=== PATIENT | female | born 1960 | race Two or more races ===

== ENCOUNTER 2017-04-13 09:25 | Emergency (ER) | payer OTHER ==
[~2017-04-13] VITALS: Ht 152.4 cm; Wt 54.4 kg
[~2017-04-13 09:25] MED LIST: CATAFLAM50 MG PO; HYDROCHLOROTHIA25 MG; ORPH100T PO; TENORMIN50 M1
[2017-04-13] MEDS ORDERED: METOPROLOL SUCC50 MG (09:36)
[2017-04-13] MEDS ORDERED: EC-NAPROSYN500 MG PO (12:58)
== END 2017-04-13 13:06 | disposition home or self-care (01) ==
LOC: ER 09:25
DX: G44.209 Tension-type headache, unspecified, not intractable (principal)

== ENCOUNTER 2017-06-10 07:09 | Outpatient (CLI) | payer OTHER ==
[~2017-06-10 07:09] MED LIST changes: +EC-NAPROSYN500 MG PO; +METOPROLOL SUCC50 MG
== END 2017-06-10 07:32 | disposition home or self-care (01) ==
LOC: LAB 07:09
DX: I10 Essential (primary) hypertension (principal); M54.5 Low back pain; E78.9 Disorder of lipoprotein metabolism, unspecified; E55.9 Vitamin D deficiency, unspecified

== ENCOUNTER 2017-08-06 08:35 | Outpatient (CLI) | payer OTHER | END 2017-08-06 08:52 | disposition home or self-care (01) | LOC: LAB 08:35 | DX: D50.9 Iron deficiency anemia, unspecified (principal) ==

== ENCOUNTER 2017-10-07 06:57 | Outpatient (CLI) | payer OTHER | END 2017-10-07 07:01 | disposition home or self-care (01) | LOC: LAB 06:57 | DX: I10 Essential (primary) hypertension (principal); M54.5 Low back pain; E78.89 Other lipoprotein metabolism disorders; E55.9 Vitamin D deficiency, unspecified ==

== ENCOUNTER 2018-01-09 10:45 | Emergency (ER) | payer OTHER ==
[~2018-01-09] VITALS: Ht 152.4 cm; Wt 54.4 kg
[2018-01-09] MEDS ORDERED: NAPROXEN500 MG PO (14:46)
== END 2018-01-09 14:55 | disposition home or self-care (01) ==
LOC: ER 10:45
DX: S20.212A Contusion of left front wall of thorax, initial encounter (principal); W22.8XXA Striking against or struck by other objects, initial encounter; Y93.89 Activity, other specified; Y92.89 Other specified places as the place of occurrence of the external cause; Y99.8 Other external cause status

== ENCOUNTER → 2018-01-20 06:31 | Outpatient (CLI) | payer OTHER ==
[~2018-01-20 06:31] MED LIST changes: +NAPROXEN500 MG PO
== END | disposition home or self-care (01) ==
LOC: LAB 06:31
DX: I10 Essential (primary) hypertension (principal); M54.5 Low back pain; E78.89 Other lipoprotein metabolism disorders; E55.9 Vitamin D deficiency, unspecified

== ENCOUNTER 2018-02-10 13:13 | Outpatient (CLI) | payer OTHER | END 2018-02-10 13:26 | disposition home or self-care (01) | LOC: NUCLEAR 13:13 | DX: M81.0 Age-related osteoporosis without current pathological fracture (principal); M54.5 Low back pain; I10 Essential (primary) hypertension; E78.89 Other lipoprotein metabolism disorders; E55.9 Vitamin D deficiency, unspecified ==

== ENCOUNTER 2018-03-15 10:55 | Outpatient (CLI) | payer OTHER | END 2018-03-15 11:04 | disposition home or self-care (01) | LOC: MAMO-SONO 10:55 | DX: Z12.31 Encounter for screening mammogram for malignant neoplasm of breast (principal); N60.11 Diffuse cystic mastopathy of right breast; N60.12 Diffuse cystic mastopathy of left breast ==

== ENCOUNTER 2018-05-20 07:37 | Outpatient (CLI) | payer OTHER | END 2018-05-20 07:51 | disposition home or self-care (01) | LOC: LAB 07:37 | DX: I10 Essential (primary) hypertension (principal); M54.5 Low back pain; E78.9 Disorder of lipoprotein metabolism, unspecified; E55.9 Vitamin D deficiency, unspecified ==

== ENCOUNTER 2018-09-29 06:40 | Outpatient (CLI) | payer OTHER | END 2018-09-29 13:35 | disposition home or self-care (01) | LOC: LAB 06:40 | DX: E55.9 Vitamin D deficiency, unspecified (principal); E78.89 Other lipoprotein metabolism disorders; I10 Essential (primary) hypertension; M54.5 Low back pain ==

== ENCOUNTER → 2018-10-02 12:24 | Outpatient (CLI) | payer OTHER | END | disposition home or self-care (01) | LOC: LAB 12:24 | DX: E55.9 Vitamin D deficiency, unspecified (principal); E78.89 Other lipoprotein metabolism disorders; I10 Essential (primary) hypertension; M54.5 Low back pain ==

== ENCOUNTER 2018-12-25 09:42 | Outpatient (CLI) | payer OTHER | END 2018-12-25 10:01 | disposition home or self-care (01) | LOC: RAD 09:42 | DX: M25.562 Pain in left knee (principal); M25.561 Pain in right knee ==

== ENCOUNTER → 2019-01-31 | Outpatient (CLI) | payer OTHER | END | disposition home or self-care (01) | LOC: MRI 12:27 | DX: M25.561 Pain in right knee (principal) | CPT/HCPCS: 73721 ==

== ENCOUNTER 2019-02-06 07:22 | Outpatient (CLI) | payer OTHER | END 2019-02-06 07:41 | disposition home or self-care (01) | LOC: LAB 07:22 | DX: E55.9 Vitamin D deficiency, unspecified (principal); E78.49 Other hyperlipidemia; I10 Essential (primary) hypertension; M54.5 Low back pain; G62.89 Other specified polyneuropathies; F41.8 Other specified anxiety disorders; M43.16 Spondylolisthesis, lumbar region; M54.31 Sciatica, right side; M79.7 Fibromyalgia ==

== ENCOUNTER 2019-02-27 06:45 | Outpatient (CLI) | payer OTHER | END 2019-02-27 07:19 | disposition home or self-care (01) | LOC: LAB 06:45 | DX: D68.8 Other specified coagulation defects (principal); E78.2 Mixed hyperlipidemia; N39.0 Urinary tract infection, site not specified; R07.89 Other chest pain ==

== ENCOUNTER → 2019-10-22 06:32 | Outpatient (CLI) | payer OTHER | END | disposition home or self-care (01) | LOC: LAB 06:32 | PROVIDERS: ATTEND Internal Medicine | DX: E78.89 Other lipoprotein metabolism disorders (principal); E55.9 Vitamin D deficiency, unspecified; I10 Essential (primary) hypertension; M54.5 Low back pain; G62.89 Other specified polyneuropathies; F41.8 Other specified anxiety disorders; M43.16 Spondylolisthesis, lumbar region; M54.31 Sciatica, right side; M79.7 Fibromyalgia; S83.206A Unspecified tear of unspecified meniscus, current injury, right knee, initial encounter; Z12.11 Encounter for screening for malignant neoplasm of colon ==

== ENCOUNTER → 2020-01-21 06:57 | Outpatient (CLI) | payer OTHER | END | disposition home or self-care (01) | LOC: LAB 06:57 | PROVIDERS: ATTEND Internal Medicine | DX: E03.8 Other specified hypothyroidism (principal); I10 Essential (primary) hypertension; M54.5 Low back pain; Z01.810 Encounter for preprocedural cardiovascular examination; E78.89 Other lipoprotein metabolism disorders; E11.51 Type 2 diabetes mellitus with diabetic peripheral angiopathy without gangrene; Z12.11 Encounter for screening for malignant neoplasm of colon ==

== ENCOUNTER 2020-06-20 06:59 | Outpatient (CLI) | payer OTHER | END 2020-06-20 07:19 | disposition home or self-care (01) | LOC: LAB 06:59 | PROVIDERS: ATTEND Internal Medicine | DX: E03.8 Other specified hypothyroidism (principal); I10 Essential (primary) hypertension; M54.5 Low back pain; Z01.810 Encounter for preprocedural cardiovascular examination; E78.89 Other lipoprotein metabolism disorders; E11.51 Type 2 diabetes mellitus with diabetic peripheral angiopathy without gangrene ==

== ENCOUNTER 2020-07-07 11:29 | Outpatient (CLI) | payer OTHER | END 2020-07-07 11:30 | disposition home or self-care (01) | LOC: PPH VACUNA 11:29 | DX: Z23 Encounter for immunization (principal) ==

== ENCOUNTER 2020-08-06 14:17 | Outpatient (CLI) | payer OTHER | END 2020-08-06 14:26 | disposition home or self-care (01) | LOC: MAMO-SONO 14:17 | PROVIDERS: ATTEND Internal Medicine | DX: Z12.31 Encounter for screening mammogram for malignant neoplasm of breast (principal); I10 Essential (primary) hypertension; M54.5 Low back pain; Z01.810 Encounter for preprocedural cardiovascular examination; E03.8 Other specified hypothyroidism; E78.89 Other lipoprotein metabolism disorders; E11.51 Type 2 diabetes mellitus with diabetic peripheral angiopathy without gangrene; Z13.820 Encounter for screening for osteoporosis ==

== ENCOUNTER 2020-08-25 14:14 | Outpatient (CLI) | payer OTHER | END 2020-08-25 14:16 | disposition home or self-care (01) | LOC: NUCLEAR 14:14 | PROVIDERS: ATTEND Internal Medicine | DX: M54.5 Low back pain (principal); M81.0 Age-related osteoporosis without current pathological fracture ==

== ENCOUNTER 2020-09-22 09:56 | Emergency (ER) | payer OTHER ==
[~2020-09-22] VITALS: Ht 149.9 cm; Wt 54.4 kg
[2020-09-22] MEDS ORDERED: TENORMIN50 M1 (10:02)
[2020-09-22] MEDS ORDERED: LIPITOR20 MG (10:02)
== END 2020-09-22 11:38 | disposition home or self-care (01) ==
LOC: ER 09:56
DX: H00.15 Chalazion left lower eyelid (principal)

== ENCOUNTER → 2020-09-29 07:14 | Outpatient (CLI) | payer OTHER ==
[~2020-09-29 07:14] MED LIST changes: +LIPITOR20 MG
== END | disposition home or self-care (01) ==
LOC: LAB 07:14
PROVIDERS: ATTEND Internal Medicine
DX: M54.5 Low back pain (principal); I10 Essential (primary) hypertension; Z01.810 Encounter for preprocedural cardiovascular examination; E03.9 Hypothyroidism, unspecified; E78.9 Disorder of lipoprotein metabolism, unspecified; E11.51 Type 2 diabetes mellitus with diabetic peripheral angiopathy without gangrene; Z12.31 Encounter for screening mammogram for malignant neoplasm of breast; Z12.11 Encounter for screening for malignant neoplasm of colon

== ENCOUNTER → 2021-01-26 07:03 | Outpatient (CLI) | payer OTHER | END | disposition home or self-care (01) | LOC: LAB 07:03 | PROVIDERS: ATTEND Emergency Medicine Pediatric Emergency Medicine | DX: I10 Essential (primary) hypertension (principal); Z01.810 Encounter for preprocedural cardiovascular examination; E03.8 Other specified hypothyroidism; E78.89 Other lipoprotein metabolism disorders; E11.51 Type 2 diabetes mellitus with diabetic peripheral angiopathy without gangrene; Z12.31 Encounter for screening mammogram for malignant neoplasm of breast; Z13.820 Encounter for screening for osteoporosis ==

== ENCOUNTER 2021-01-29 15:15 | Outpatient (CLI) | payer OTHER | END 2021-01-29 15:20 | disposition home or self-care (01) | LOC: PPH VACUNA 15:15 | PROVIDERS: ATTEND Emergency Medicine Pediatric Emergency Medicine | DX: Z23 Encounter for immunization (principal) ==

== ENCOUNTER → 2021-05-11 07:13 | Outpatient (CLI) | payer OTHER | END | disposition home or self-care (01) | LOC: LAB 07:13 | PROVIDERS: ATTEND Internal Medicine | DX: I10 Essential (primary) hypertension (principal); E03.9 Hypothyroidism, unspecified; E78.9 Disorder of lipoprotein metabolism, unspecified ==

== ENCOUNTER 2021-11-10 13:51 | Outpatient (CLI) | payer OTHER | END 2021-11-10 14:01 | disposition home or self-care (01) | LOC: PPH VACUNA 13:51 | PROVIDERS: ATTEND Emergency Medicine Pediatric Emergency Medicine | DX: Z23 Encounter for immunization (principal) ==

== ENCOUNTER 2022-03-05 07:08 | Outpatient (CLI) | payer OTHER | END 2022-03-05 07:10 | disposition home or self-care (01) | LOC: LAB 07:08 | PROVIDERS: ATTEND Internal Medicine | DX: I10 Essential (primary) hypertension (principal); M54.50 Low back pain, unspecified; E03.9 Hypothyroidism, unspecified; E78.9 Disorder of lipoprotein metabolism, unspecified; Z12.31 Encounter for screening mammogram for malignant neoplasm of breast; Z13.820 Encounter for screening for osteoporosis ==

== ENCOUNTER → 2022-06-11 07:30 | Outpatient (CLI) | payer OTHER | END | disposition home or self-care (01) | LOC: LAB 07:30 | PROVIDERS: ATTEND Internal Medicine | DX: I10 Essential (primary) hypertension (principal); E03.9 Hypothyroidism, unspecified; E78.9 Disorder of lipoprotein metabolism, unspecified; Z12.31 Encounter for screening mammogram for malignant neoplasm of breast; Z13.820 Encounter for screening for osteoporosis; M54.50 Low back pain, unspecified ==

== ENCOUNTER 2022-07-15 10:46 | Outpatient (CLI) | payer OTHER | END 2022-07-15 10:58 | disposition home or self-care (01) | LOC: MAMO-SONO 10:46 | PROVIDERS: ATTEND Obstetrics & Gynecology | DX: N60.11 Diffuse cystic mastopathy of right breast (principal); N60.12 Diffuse cystic mastopathy of left breast; R10.2 Pelvic and perineal pain ==

== ENCOUNTER → 2022-07-15 | Outpatient (CLI) | payer OTHER | END | disposition home or self-care (01) | LOC: NUCLEAR 09:57 | PROVIDERS: ATTEND Obstetrics & Gynecology | DX: M81.0 Age-related osteoporosis without current pathological fracture (principal) ==

== ENCOUNTER 2022-09-20 12:20 | Emergency (ER) | payer OTHER ==
[~2022-09-20] VITALS: Ht 149.9 cm; Wt 57.6 kg
[2022-09-20] MEDS ORDERED: KAPSPARGO SPRIN50 MG PO (13:02)
== END 2022-09-20 19:00 | disposition home or self-care (01) ==
LOC: ER 12:20
DX: L03.90 Cellulitis, unspecified (principal); L50.9 Urticaria, unspecified; I10 Essential (primary) hypertension

== ENCOUNTER 2022-09-22 13:09 | Outpatient (CLI) | payer OTHER ==
[~2022-09-22 13:09] MED LIST changes: +KAPSPARGO SPRIN50 MG PO
== END 2022-09-22 13:10 | disposition home or self-care (01) ==
LOC: LAB 13:09
DX: E11.9 Type 2 diabetes mellitus without complications (principal); Z13.1 Encounter for screening for diabetes mellitus

== ENCOUNTER 2023-04-21 07:35 | Outpatient (CLI) | payer OTHER ==
[2023-04-21 08:25] LABS: URINE APPEARANCE Clear; URINE BILIRRUBIN Negative (NEGATIVE); URINE BLOOD Small; URINE COLOR Yellow; URINE GLUCOSE Negative (NEGATIVE); URINE LEUKOCYTE Negative; URINE NITRATE Negative; URINE PROTEIN Negative (NEGATIVE); URINE UROBILINOGEN 0.2 E.U./dl
[2023-04-21 08:27] LABS: URINE BACTERIA 122.2 uL (0.0-1933); URINE EPITHELIAL CELLS 3.8 uL (0.0-38.8); URINE RBC 119.2 uL (0.0-20.8); URINE WBC 4.9 uL (0.0-23.2)
[2023-04-21 08:30] LABS: HEMATOCRIT 37.8 % (36.0-45.00); HEMOGLOBIN 12.8 g/dL (12.0-15.00); MEAN CELL VOLUME 86.6 fL (80.00-100.00); MEAN CORPUSCULAR HEMOGLOBIN 29.3 pg (27.00-32.0); MEAN CORPUSCULAR HGB CONC 33.8 g/dl (32.0-36.0); PLATELET COUNT 270 K/uL (150-450); RED BLOOD COUNT 4.37 M/uL (4.00-6.00); RED CELL DISTRIBUTION WIDTH 15.4 % (11.5-14.5)
[2023-04-21 09:27] LABS: ALBUMIN 3.6 gm/dL (3.4-5.0); BILIRUBIN TOTAL 0.69 mg/dL (0.3-1.2); CHOL HDL RATIO 2.6 (0-5.0); CREATININE SERUM 0.49 mg/dL (0.55-1.02); GFR 127.55; GLOBULINA 3.4 G/DL (2.4-3.5); POTASSIUM 4.08 mEq/L (3.5-5.1); T4 TOTAL 8.46 UG/DL (4.8-13.9); TSH 1.94 uIU/mL (0.358-3.74)
== END 2023-04-21 07:48 | disposition home or self-care (01) ==
LOC: LAB 07:35
PROVIDERS: ATTEND Internal Medicine
DX: I10 Essential (primary) hypertension (principal); E03.9 Hypothyroidism, unspecified; E78.9 Disorder of lipoprotein metabolism, unspecified; T78.40XA Allergy, unspecified, initial encounter; Z12.31 Encounter for screening mammogram for malignant neoplasm of breast; Z13.820 Encounter for screening for osteoporosis

== ENCOUNTER → 2023-10-12 07:14 | Outpatient (CLI) | payer OTHER ==
[2023-10-12 07:50] LABS: HEMATOCRIT 38.1 % (36.0-45.00); MEAN CELL VOLUME 88.1 fL (80.00-100.00); MEAN CORPUSCULAR HGB CONC 34.1 g/dl (32.0-36.0); PLATELET COUNT 236 K/uL (150-450); RED BLOOD COUNT 4.32 M/uL (4.00-6.00); RED CELL DISTRIBUTION WIDTH 14.5 % (11.5-14.5)
[2023-10-12 07:52] LABS: URINE APPEARANCE Clear; URINE BILIRRUBIN Negative (NEGATIVE); URINE BLOOD Moderate; URINE COLOR Yellow; URINE GLUCOSE Negative (NEGATIVE); URINE LEUKOCYTE Negative; URINE NITRATE Negative; URINE PROTEIN Negative (NEGATIVE); URINE UROBILINOGEN 0.2 E.U./dl
[2023-10-12 07:56] LABS: URINE BACTERIA 64.2 uL (0.0-1933); URINE EPITHELIAL CELLS 2.1 uL (0.0-38.8); URINE RBC 101.8 uL (0.0-20.8); URINE WBC 2.6 uL (0.0-23.2)
[2023-10-12 08:52] LABS: ALBUMIN 3.6 gm/dL (3.4-5.0); BILIRUBIN TOTAL 0.78 mg/dL (0.3-1.2); BILIRUBIN,CONJUGATED 0.25 mg/dL (0.0-0.2); BILIRUBIN,UNCONJUGATED 0.53 mg/dL (0.0-0.6); CALCIUM 8.9 mg/dL (8.5-10.1); CREATININE SERUM 0.42 mg/dL (0.55-1.02); GFR 152.38; POTASSIUM 3.61 mEq/L (3.5-5.1); TOTAL PROTEIN 7.2 gm/dL (6.4-8.2)
== END | disposition home or self-care (01) ==
LOC: LAB 07:14
PROVIDERS: ATTEND Internal Medicine
DX: E03.9 Hypothyroidism, unspecified (principal); E78.9 Disorder of lipoprotein metabolism, unspecified; I10 Essential (primary) hypertension; L13.0 Dermatitis herpetiformis; B00.1 Herpesviral vesicular dermatitis; Z12.31 Encounter for screening mammogram for malignant neoplasm of breast; Z13.820 Encounter for screening for osteoporosis

== ENCOUNTER 2023-11-09 09:39 | Outpatient (CLI) | payer OTHER | END 2023-11-09 09:57 | disposition home or self-care (01) | LOC: MAMO-SONO 09:39 | DX: N60.11 Diffuse cystic mastopathy of right breast (principal); N60.12 Diffuse cystic mastopathy of left breast ==

== ENCOUNTER → 2024-04-30 08:13 | Outpatient (CLI) | payer OTHER ==
[2024-04-30 09:24] LABS: PH,URINE 6.5 (5.0-8.0); URINE APPEARANCE Cloudy; URINE BILIRRUBIN Negative (NEGATIVE); URINE BLOOD Large; URINE COLOR Dark Yellow; URINE GLUCOSE Negative (NEGATIVE); URINE KETONE Trace (NEGATIVE); URINE LEUKOCYTE Trace; URINE NITRATE Negative
[2024-04-30 09:26] LABS: URINE EPITHELIAL CELLS 67.2 uL (0.0-38.8); URINE RBC 997.1 uL (0.0-20.8); URINE WBC 34.3 uL (0.0-23.2)
[2024-04-30 09:31] LABS: HEMATOCRIT 39.6 % (36.0-45.00); HEMOGLOBIN 13.3 g/dL (12.0-15.00); MEAN CELL VOLUME 87.8 fL (80.00-100.00); MEAN CORPUSCULAR HEMOGLOBIN 29.4 pg (27.00-32.0); MEAN CORPUSCULAR HGB CONC 33.5 g/dl (32.0-36.0); PLATELET COUNT 190 K/uL (150-450); RED BLOOD COUNT 4.51 M/uL (4.00-6.00); RED CELL DISTRIBUTION WIDTH 14.1 % (11.5-14.5)
[2024-04-30 09:42] LABS: URINE PROTEIN 100 (NEGATIVE)
[2024-04-30 09:43] LABS: URINE YEAST MODERATE /hpf
[2024-04-30 10:40] LABS: ALBUMIN 3.5 gm/dL (3.4-5.0); BILIRUBIN TOTAL 0.57 mg/dL (0.3-1.2); CALCIUM 8.9 mg/dL (8.5-10.1); CREATININE SERUM 0.5 mg/dL (0.55-1.02); GFR 124.21; GLOBULINA 3.6 G/DL (2.4-3.5); POTASSIUM 3.85 mEq/L (3.5-5.1); T4 TOTAL 8.11 UG/DL (4.8-13.9); TOTAL PROTEIN 7.1 gm/dL (6.4-8.2); TSH 1.05 uIU/mL (0.358-3.74)
[2024-04-30 11:21] LABS: T3 TOTAL 0.891 ng/ml (0.846-2.02); VITAMIN D3 25 HYDROXY 77.01 ng/ml (30-120)
== END | disposition home or self-care (01) ==
LOC: LAB 08:13
PROVIDERS: ATTEND Internal Medicine
DX: E03.9 Hypothyroidism, unspecified (principal); E78.9 Disorder of lipoprotein metabolism, unspecified; I10 Essential (primary) hypertension; L13.0 Dermatitis herpetiformis; B00.1 Herpesviral vesicular dermatitis; Z12.31 Encounter for screening mammogram for malignant neoplasm of breast; Z13.820 Encounter for screening for osteoporosis

== ENCOUNTER 2024-05-09 11:41 | Outpatient (CLI) | payer OTHER | END 2024-05-09 11:46 | disposition home or self-care (01) | LOC: RAD 11:41 | PROVIDERS: ATTEND Internal Medicine | DX: I10 Essential (primary) hypertension (principal); J06.9 Acute upper respiratory infection, unspecified ==

== ENCOUNTER 2024-08-02 08:01 | Outpatient (CLI) | payer OTHER ==
[2024-08-02 08:49] LABS: HEMATOCRIT 38.7 % (36.0-45.00); HEMOGLOBIN 13.1 g/dL (12.0-15.00); MEAN CELL VOLUME 87.3 fL (80.00-100.00); MEAN CORPUSCULAR HEMOGLOBIN 29.5 pg (27.00-32.0); MEAN CORPUSCULAR HGB CONC 33.8 g/dl (32.0-36.0); PLATELET COUNT 252 K/uL (150-450); RED BLOOD COUNT 4.44 M/uL (4.00-6.00); RED CELL DISTRIBUTION WIDTH 15.1 % (11.5-14.5)
[2024-08-02 09:10] LABS: URINE APPEARANCE Clear; URINE BILIRRUBIN Negative (NEGATIVE); URINE BLOOD Small; URINE COLOR Yellow; URINE GLUCOSE Negative (NEGATIVE); URINE KETONE Negative (NEGATIVE); URINE LEUKOCYTE Negative; URINE NITRATE Negative; URINE PROTEIN Negative (NEGATIVE); URINE UROBILINOGEN 0.2 E.U./dl
[2024-08-02 09:33] LABS: URINE WBC 0.6 uL (0.0-23.2)
[2024-08-02 09:35] LABS: ALBUMIN 3.5 gm/dL (3.4-5.0); BILIRUBIN TOTAL 0.57 mg/dL (0.3-1.2); CALCIUM 8.9 mg/dL (8.5-10.1); CREATININE SERUM 0.43 mg/dL (0.55-1.02); GFR 147.83; GLOBULINA 3.4 G/DL (2.4-3.5); POTASSIUM 4.05 mEq/L (3.5-5.1); TOTAL PROTEIN 6.9 gm/dL (6.4-8.2)
== END 2024-08-02 13:31 | disposition home or self-care (01) ==
LOC: LAB 08:01
PROVIDERS: ATTEND Internal Medicine
DX: E03.9 Hypothyroidism, unspecified (principal); I10 Essential (primary) hypertension; E78.9 Disorder of lipoprotein metabolism, unspecified; N39.0 Urinary tract infection, site not specified; J06.9 Acute upper respiratory infection, unspecified; Z12.31 Encounter for screening mammogram for malignant neoplasm of breast; Z13.820 Encounter for screening for osteoporosis

== ENCOUNTER 2024-10-30 08:11 | Outpatient (CLI) | payer OTHER ==
[2024-10-30 08:54] LABS: BASO % 0.6 % (0.1-1.2); EOS # 0.20 (0.04-0.54); EOS % 2.3 % (0.7-7.0); LYMPH # 1.47 (1.18-3.74); LYMPH % 17.1 % (19.3-53.1); MEAN PLATELET VOLUME 10.10 fl (9.4-12.4); MONO # 0.78 (0.24-0.82); MONO % 9.1 % (4.7-12.5); NEUT # 6.05 (1.56-6.13); NEUT % 70.2 % (34.0-71.1); RED CELL DISTRIBUTION WIDTH 14.6 % (11.6-14.4)
[2024-10-30 09:00] LABS: URINE APPEARANCE Clear; URINE BILIRRUBIN Negative (NEGATIVE); URINE BLOOD Small; URINE COLOR Yellow; URINE GLUCOSE Negative (NEGATIVE); URINE KETONE Negative (NEGATIVE); URINE LEUKOCYTE Negative; URINE NITRATE Negative; URINE PROTEIN Negative (NEGATIVE); URINE UROBILINOGEN 0.2 E.U./dl
[2024-10-30 09:01] LABS: URINE BACTERIA 32.3 uL (0.0-1933); URINE RBC 14.6 uL (0.0-20.8)
[2024-10-30 09:03] LABS: URINE CAST 0.00 uL (0.0-1.40); URINE EPITHELIAL CELLS 1.0 uL (0.0-38.8); URINE WBC 1.5 uL (0.0-23.2)
[2024-10-30 09:38] LABS: ALT/SGPT 26.0 U/L (12-78); AST/SGOT 14.0 U/L (15-37); BILIRUBIN TOTAL 0.66 mg/dL (0.3-1.2); BUN CREA RATIO 22.0 (7.0-25.0); CREATININE SERUM 0.45 mg/dL (0.55-1.02); GFR 140.27; GLOBULINA 3.4 G/DL (2.4-3.5); GLUCOSE FASTING 98.0 mg/dL (65-100); OSMOLALITY SERUM 273.0 MOSM/KG (275-295)
== END 2024-10-30 08:19 | disposition home or self-care (01) ==
LOC: LAB 08:11
PROVIDERS: ATTEND Internal Medicine
DX: E03.9 Hypothyroidism, unspecified (principal); I10 Essential (primary) hypertension; E78.9 Disorder of lipoprotein metabolism, unspecified; N39.0 Urinary tract infection, site not specified; J06.9 Acute upper respiratory infection, unspecified; Z12.31 Encounter for screening mammogram for malignant neoplasm of breast; Z13.820 Encounter for screening for osteoporosis

== ENCOUNTER 2024-10-30 14:15 | Outpatient (CLI) | payer OTHER ==
[2024-10-30 15:02] LABS: ob NEGATIVE (NEGATIVE)
== END 2024-10-30 14:20 | disposition home or self-care (01) ==
LOC: LAB 14:15
PROVIDERS: ATTEND Internal Medicine
DX: E03.9 Hypothyroidism, unspecified (principal); I10 Essential (primary) hypertension; E78.9 Disorder of lipoprotein metabolism, unspecified; N39.0 Urinary tract infection, site not specified; J06.9 Acute upper respiratory infection, unspecified; Z12.31 Encounter for screening mammogram for malignant neoplasm of breast; Z13.820 Encounter for screening for osteoporosis; Z12.11 Encounter for screening for malignant neoplasm of colon

== ENCOUNTER 2024-11-23 10:06 | Outpatient (CLI) | payer OTHER | END 2024-11-23 10:07 | disposition home or self-care (01) | LOC: NUCLEAR 10:06 | PROVIDERS: ATTEND Obstetrics & Gynecology | DX: M81.0 Age-related osteoporosis without current pathological fracture (principal) ==

== ENCOUNTER 2024-11-26 09:53 | Outpatient (CLI) | payer OTHER | END 2024-11-26 10:11 | disposition home or self-care (01) | LOC: MAMO-SONO 09:53 | PROVIDERS: ATTEND Obstetrics & Gynecology | DX: N60.11 Diffuse cystic mastopathy of right breast (principal); N60.12 Diffuse cystic mastopathy of left breast ==

== ENCOUNTER 2025-02-01 07:41 | Outpatient (CLI) | payer OTHER ==
[2025-02-01 08:26] LABS: URINE APPEARANCE Clear; URINE BILIRRUBIN Negative (NEGATIVE); URINE BLOOD Moderate; URINE COLOR Yellow; URINE GLUCOSE Negative (NEGATIVE); URINE KETONE Negative (NEGATIVE); URINE LEUKOCYTE Negative; URINE NITRATE Negative; URINE PROTEIN Negative (NEGATIVE); URINE UROBILINOGEN 0.2 E.U./dl
[2025-02-01 08:28] LABS: URINE BACTERIA 19.1 uL (0.0-1933); URINE EPITHELIAL CELLS 1.6 uL (0.0-38.8); URINE RBC 41.1 uL (0.0-20.8)
[2025-02-01 08:32] LABS: BASO % 0.8 % (0.1-1.2); EOS # 0.21 (0.04-0.54); EOS % 2.8 % (0.7-7.0); LYMPH # 1.43 (1.18-3.74); LYMPH % 19.0 % (19.3-53.1); MEAN PLATELET VOLUME 10.10 fl (9.4-12.4); MONO # 0.58 (0.24-0.82); MONO % 7.7 % (4.7-12.5); NEUT # 5.19 (1.56-6.13); NEUT % 68.9 % (34.0-71.1); RED CELL DISTRIBUTION WIDTH 14.0 % (11.6-14.4)
[2025-02-01 08:38] LABS: URINE CAST 0.00 uL (0.0-1.40); URINE WBC 0.7 uL (0.0-23.2)
[2025-02-01 09:32] LABS: ALT/SGPT 19.0 U/L (12-78); AST/SGOT 16.0 U/L (15-37); BILIRUBIN TOTAL 0.86 mg/dL (0.3-1.2); BUN CREA RATIO 25.0 (7.0-25.0); CREATININE SERUM 0.44 mg/dL (0.55-1.02); GFR 143.51; GLOBULINA 3.2 G/DL (2.4-3.5); GLUCOSE FASTING 90.0 mg/dL (65-100); OSMOLALITY SERUM 267.0 MOSM/KG (275-295)
== END 2025-02-01 07:45 | disposition home or self-care (01) ==
LOC: LAB 07:41
PROVIDERS: ATTEND Emergency Medicine Pediatric Emergency Medicine
DX: E03.9 Hypothyroidism, unspecified (principal); I10 Essential (primary) hypertension; E78.9 Disorder of lipoprotein metabolism, unspecified; Z12.31 Encounter for screening mammogram for malignant neoplasm of breast; Z13.820 Encounter for screening for osteoporosis